=== PATIENT | female | born 1985 | race Caucasian/White ===

== ENCOUNTER → 2018-07-29 | Outpatient (CLI) | payer BC ==
[2018-07-29 13:19] LABS: EOS # 0.1 (0.04-0.40); EOS % 1.1 % (1.0-5.0); HEMATOCRIT 41.9 % (37.0-47.0); HEMOGLOBIN 13.1 g/dL (12.5-16.0); LYMPH# 2.3 (1.50-4.00); MEAN CELL VOLUME 92 fl (78-100); MEAN CORPUSCULAR HEMOGLOBIN 29 pg (27-31); MEAN CORPUSCULAR HGB CONC 31 g/dL (33-37); MEAN PLATELET VOLUME 10.2 fl (7.4-10.4); MONO # 0.5 (0.20-0.80); NEU # 4.3 (1.40-6.50); PLATELET COUNT 226 K/mm3 (130-400); RED BLOOD COUNT 4.58 M/mm3 (4.10-5.30); RED CELL DISTRIBUTION WIDTH 12.4 % (11.5-14.5); WHITE BLOOD COUNT 7.2 K/mm3 (4.8-10.8)
[2018-07-29 13:25] LABS: ALBUMIN 4.1 g/dL (3.5-5.0); POTASSIUM 4.3 mmol/L (3.6-5.0); TOTAL BILIRUBIN 0.3 mg/dL (0.2-1.3); TOTAL PROTEIN 7.3 g/dL (6.3-8.2)
[2018-07-29 13:31] LABS: CALCIUM 9.3 mg/dL (8.4-10.2)
== END ==
LOC: RAD 12:35
PROVIDERS: Nurse Practitioner
DX: K76.0 Fatty (change of) liver, not elsewhere classified (principal); K80.20 Calculus of gallbladder without cholecystitis without obstruction

== ENCOUNTER → 2019-10-01 | Outpatient (CLI) | payer BC ==
[2019-10-01 09:58] LABS: EOS # 0.1 (0.04-0.40); EOS % 0.9 % (1.0-5.0); HEMATOCRIT 42.5 % (37.0-47.0); HEMOGLOBIN 13.5 g/dL (12.5-16.0); LYMPH# 2.1 (1.50-4.00); MEAN CELL VOLUME 90 fl (78-100); MEAN CORPUSCULAR HEMOGLOBIN 29 pg (27-31); MEAN CORPUSCULAR HGB CONC 32 g/dL (33-37); MONO # 0.6 (0.20-0.80); NEU # 5.2 (1.40-6.50); PLATELET COUNT 200 K/mm3 (130-400); RED BLOOD COUNT 4.71 M/mm3 (4.10-5.30); RED CELL DISTRIBUTION WIDTH 12.5 % (11.5-14.5)
[2019-10-01 10:03] LABS: ALBUMIN 3.9 g/dL (3.5-5.0); POTASSIUM 4.6 mmol/L (3.5-5.1)
[2019-10-01 10:04] LABS: CALCIUM 9.4 mg/dL (8.3-10.5)
[2019-10-01 10:06] LABS: TOTAL PROTEIN 6.9 g/dL (6.4-8.3)
[2019-10-01 10:08] LABS: TOTAL BILIRUBIN 0.4 mg/dL (0.2-1.2)
== END ==
LOC: LAB 09:34
PROVIDERS: Family Medicine
DX: Z00.00 Encounter for general adult medical examination without abnormal findings (principal); E78.5 Hyperlipidemia, unspecified; J30.9 Allergic rhinitis, unspecified; R22.0 Localized swelling, mass and lump, head

== ENCOUNTER 2021-07-08 20:09 | Emergency (ER) | payer OTHER ==
[~2021-07-08] VITALS: Ht 160 cm; Wt 102.7 kg
[2021-07-08 20:38] LABS: BASO # 0.05 K/mm3 (0.02-0.10); EOS # 0.11 K/mm3 (0.04-0.40); EOS % 1.4 % (1.0-5.0); HEMATOCRIT 42.7 % (37.0-47.0); HEMOGLOBIN 13.8 g/dL (12.5-16.0); LYMPH# 2.57 K/mm3 (1.50-4.00); MEAN CELL VOLUME 88 fl (78-100); MEAN CORPUSCULAR HEMOGLOBIN 29 pg (27-31); MEAN CORPUSCULAR HGB CONC 32 g/dL (33-37); MEAN PLATELET VOLUME 9.9 fl (7.4-10.4); MONO # 0.46 K/mm3 (0.20-0.80); PLATELET COUNT 251 K/mm3 (130-400); RED BLOOD COUNT 4.85 M/mm3 (4.10-5.30); RED CELL DISTRIBUTION WIDTH 11.9 % (11.5-14.5); WHITE BLOOD COUNT 7.6 K/mm3 (4.8-10.8)
[2021-07-08] MEDS ORDERED: RT ALBUTEROL CC18 GM IH (20:42)
[2021-07-08 20:52] LABS: ALBUMIN 4.1 g/dL (3.5-5.0); POTASSIUM 4.3 mmol/L (3.5-5.1)
[2021-07-08 20:53] LABS: CALCIUM 10.3 mg/dL (8.3-10.5)
[2021-07-08 20:55] LABS: TOTAL PROTEIN 7.8 g/dL (6.4-8.3)
[2021-07-08 20:56] LABS: TOTAL BILIRUBIN 0.2 mg/dL (0.2-1.2)
[2021-07-08] MEDS ORDERED: MORGIDOX 1X100100 MG PO (21:28)
[2021-07-08] MEDS ORDERED: DECADRON 4MG TAB4 MG PO (21:28)
[2021-07-08] MEDS ORDERED: PROMETH-CODEIN 65 ML PO (21:28)
[2021-07-08 21:51] VITALS: BP 130/54
[2021-07-22] MEDS ORDERED: ASPIRIN E.C. 8181 MG PO (13:23)
[2021-07-22] MEDS ORDERED: MUCINEX1200 MG PO (13:24)
== END 2021-07-08 21:51 | disposition home or self-care (01) ==
LOC: ED 20:09
PROVIDERS: Family Medicine
DX: U07.1 COVID-19 (principal)

== ENCOUNTER → 2021-07-22 | Outpatient (CLI) | payer OTHER ==
[~2021-07-22] VITALS: Ht 160 cm; Wt 115.0 kg
[~2021-07-22] MED LIST: ASPIRIN E.C. 8181 MG PO; DECADRON 4MG TAB4 MG PO; MORGIDOX 1X100100 MG PO; MUCINEX1200 MG PO; PROMETH-CODEIN 65 ML PO; RT ALBUTEROL CC18 GM IH
[2021-07-22 13:22] VITALS: BP 135/86
[2021-07-22 14:01] LABS: HEMATOCRIT 40.1 % (37.0-47.0); HEMOGLOBIN 12.8 g/dL (12.5-16.0); MEAN PLATELET VOLUME 10.4 fl (7.4-10.4); RED BLOOD COUNT 4.39 M/mm3 (4.10-5.30); RED CELL DISTRIBUTION WIDTH 13.1 % (11.5-14.5); WHITE BLOOD COUNT 9.2 K/mm3 (4.8-10.8)
[2021-07-22 14:06] LABS: ALBUMIN 3.7 g/dL (3.5-5.0); POTASSIUM 4.4 mmol/L (3.5-5.1)
[2021-07-22 14:07] LABS: CALCIUM 9.2 mg/dL (8.3-10.5)
[2021-07-22 14:08] LABS: TOTAL PROTEIN 6.5 g/dL (6.4-8.3)
[2021-07-22 14:10] LABS: TOTAL BILIRUBIN 0.4 mg/dL (0.2-1.2)
[2021-07-22 14:36] VITALS: BP 138/77
[2021-07-22 15:45] LABS: D-DIMER 0.41 mg/L FEU (0.15-0.50)
--- NOTE | 2021-07-22 15:56 | NUR ---
MIKE FERMIN AT BEDSIDE WITH PATIENT.
== END ==
LOC: AMSURD 13:03
PROVIDERS: Nurse Practitioner
DX: I95.1 Orthostatic hypotension (principal); U09.9 Post COVID-19 condition, unspecified
CPT/HCPCS: J1885; J7030

== ENCOUNTER → 2023-04-05 | Outpatient (CLI) | payer OTHER | LOC: LAB 15:46 | DX: N61.1 Abscess of the breast and nipple (principal) ==